=== PATIENT | female | born 1955 | race Caucasian/White ===

== ENCOUNTER → 2025-08-28 11:01 | Outpatient (CLI) | payer MEDICARE, OTHER, SELFPAY ==
[2025-08-28 12:03] LABS: Add Manual Diff / Slide Review NO; Hematocrit 36.6 % (36-46); Hemoglobin 12.2 g/dL (12.0-16.0); Lymphocytes Absolute Auto 1500 /uL (1100-4500); Mean Corpuscular HGB Conc 33.4 % (30-36); Mean Corpuscular Hemoglobin 30.7 PG (26-34); Mean Corpuscular Volume 92.1 fL (80-100); Platelet Count 244 X10^3/uL (150-400)
== END ==
PROVIDERS: Visit Provider Student in an Organized Health Care Education/Training Program
DX: J45.50 Severe persistent asthma, uncomplicated (principal)
CPT/HCPCS: 36415; 85025